=== PATIENT | male | born 1980 | race African-American/Black ===

== ENCOUNTER 2017-12-01 18:32 | Emergency (ER) | payer OTHER ==
[~2017-12-01] VITALS: Ht 182.9 cm; Wt 90.7 kg
[2017-12-01 18:37] VITALS: BP 134/89
[2017-12-01] MEDS ORDERED: CLOPIDOGREL75 MG ORAL (18:56)
[2017-12-01] MEDS ORDERED: HYDROCHLOROTH12.5 M2 ORAL (18:56)
[2017-12-01] MEDS ORDERED: ATORVASTATIN CA40 MG ORAL (18:56)
[2017-12-01] MEDS ORDERED: LISINOPRIL10 MG ORAL (18:56)
--- NOTE | 2017-12-01 19:11 | Emergency Room Report ---
History of Present Illness General Chief Complaint: General Complaint Source: Patient Present Illness HPI 37 yo male presents to ER with complaining of "not being able to focus" for the past few days. Patient reports symptoms have improved since that time. Patient denies fever, chest pain, SOB, nausea, vomiting. Patient reports feeling "physically well" but mentally "hazy". Patient's reports patient screaming in the middle of the night "a few times " over the past week; states patient has been complaining of people following him and hearing voices. reports patient states he thinks his "neighbors are clones." denies recent illness. states patient has not had fever, chest pain, SOB. reports patient history of stroke 3 years ago; reports no focal neuro deficits. reports patient has history of smoking marijuana; requesting urine test to see if urine is laced with another drug. reports no history of psychiatric disorders. Allergies: Coded Allergies: No Known Allergies (Unverified , 12/01/17) Patient History Past Medical History: see triage record Social History: Reports: drug use - marijuana Reviewed Nursing Documentation: PMH: Agreed, PSxH: Agreed Review of Systems All Other Systems: negative except mentioned in HPI Physical Exam Vital Signs Date Time Temp Pulse Resp B/P (MAP) Pulse Ox O2 Delivery O2 Flow Rate FiO2 12/01/17 18:37 97.9 76 18 134/89 95 Room Air Sp02 EP Interpretation: reviewed, normal General Appearance: no apparent distress, alert, GCS 15, non-toxic Head: normocephalic, atraumatic Eyes: bilateral eye normal inspection, bilateral eye PERRL ENT: hearing grossly normal, normal pharynx, no angioedema, normal voice Neck: full range of motion, supple/symm/no masses Respiratory: chest non-tender, lungs clear, normal breath sounds, no respiratory distress, speaking full sentences Cardiovascular #1: regular rate, rhythm, no edema Cardiovascular #2: 2+ radial (R), 2+ radial (L) Gastrointestinal: normal bowel sounds, non tender, soft, non-distended, no guarding, no rebound Rectal: deferred Genitourinary: no CVA tenderness Musculoskeletal: back normal, gait/station normal, normal range of motion, non- tender, no calf tenderness Neurologic: alert, oriented x3, responsive, motor strength/tone normal, sensory intact, speech normal Psychiatric: judgement/insight normal, memory normal, mood/affect normal, no suicidal/homicidal ideation Skin: normal color, no rash, warm/dry, well hydrated Lymphatic: no adenopathy Medical Decision Making PA Attestation Dr. Rodríguez is my supervising Physician whom patient management has been discussed with. Diagnostic Impression: Primary Impression: Marijuana smoker ER Course Pt presents to ED c/o "feeling hazy". DDX considered but are not limited to marijuana use, drug use, mental health disorder. Patient is currently resting comfortably in no acute distress, nontoxic appearing, hemodynamically stable. Physical exam was negative for cranial nerve deficits or physical symptoms. VITAL SIGNS are WNL, patient is afebrile ORDERS: Urine drug screen No other interventions required at this time. ED INTERVENTIONS: none required at this time ER COURSE UA positive for marijuana. No other drugs present in urine. Results discussed with patient. Informed patient and that patient need to follow up with primary care provider and may require further mental health evaluation for further treatment. Provided patient with information for Mental Health Urgent Care. Instructed patient and to follow up with specialist in 1-3 days. Patient and understand and agree to treatment plan. DISCHARGE: At this time pt is stable for d/c to home. Will provide with patient care instructions and any necessary prescriptions. Patient to take medication as instructed. Care plan and follow-up instructions provided. Patient questions asked and answered. Patient instructed to follow-up with primary care provider in 3 - 5 days. ER precautions given. Patient instructed to return to ER immediately for any new or worsening of symptoms. Labs Test 12/01/17 19:19 Urine Opiates Screen Negative (NEGATIVE) Urine Barbiturates Screen Negative (NEGATIVE) Phencyclidine (PCP) Screen Negative (NEGATIVE) Urine Amphetamines Screen Negative (NEGATIVE) Urine Benzodiazepines Screen Negative (NEGATIVE) Urine Cocaine Screen Negative (NEGATIVE) Urine Marijuana (THC) Screen Positive (NEGATIVE) Last Vital Signs Date Time Temp Pulse Resp B/P (MAP) Pulse Ox O2 Delivery O2 Flow Rate FiO2 12/01/17 18:37 97.9 76 18 134/89 95 Room Air Disposition: HOME, SELF-CARE Condition: Stable Patient Instructions: Cannabis Use Disorder, Opioid Withdrawal Additional Instructions: Followup with primary care provider in 3 -5 days to discuss treatment and further referral plan. Followup with mental health specialist in 1-3 days. Contact information provided for Mental Health Urgent Care. Take medications as directed. Patient questions asked and answered. ER precautions given, patient instructed to return to ER immediately for any new or worsening of symptoms. Steve Johnston Dec 01, 2017 19:11
[2017-12-01 20:24] VITALS: BP 130/88
[2017-12-01 20:25] VITALS: BP 130/88
== END 2017-12-01 20:30 | disposition home or self-care (01) ==
LOC: EMR 20:27
DX: F12.90 Cannabis use, unspecified, uncomplicated (principal)
CPT/HCPCS: 80307; 99283